=== PATIENT | female | born 1970 | race Caucasian/White ===

== ENCOUNTER → 2016-05-30 | Outpatient (CLI) | payer OTHER ==
[2015-10-03 17:10] VITALS: BP 118/62
[~2016-05-30] MED LIST: BROM2.5T3 PO; BUPR300T4 PO; HYDR25TA PO; LEVO88TA4 PO; SERT50TA8 PO; SULF1TAB24 PO; TRIA1TAB3 PO
--- NOTE | 2016-05-30 13:51 | RAD ---
Bone densitometry scan, 05/30/2016: History: Osteoporosis screening The lumbar spine and right hip were examined utilizing a DEXA technique. The bone mineral density in the lumbar spine as measured from the L1-L4 levels is 1.39 g/sq cm. This yields a T score 1.8 which is in the normal range. A normal total T score of 0.3 was obtained from the right hip. IMPRESSION: Normal bone mineral density measurements.
== END | disposition home or self-care (01) ==
LOC: DXRAD 13:00
PROVIDERS: ATTEND Nurse Practitioner Adult Health
DX: I10 Essential (primary) hypertension (principal); E11.9 Type 2 diabetes mellitus without complications; L40.9 Psoriasis, unspecified; E03.9 Hypothyroidism, unspecified; M85.88 Other specified disorders of bone density and structure, other site
CPT/HCPCS: 77080

== ENCOUNTER 2019-07-01 20:28 | Emergency (ER) | payer OTHER ==
[~2019-07-01] VITALS: Ht 165.1 cm; Wt 81.8 kg
[~2019-07-01 20:28] MED LIST changes: -BROM2.5T3 PO; +BROM2.5T5 PO; -BUPR300T4 PO; +BUPR300T92 PO
--- NOTE | 2019-07-01 21:13 | PHYS DOC ---
Past History Past Medical History: Depression, Diabetes, Seizure, Stroke, Other Past Surgical History: , Other Alcohol Use: None Drug Use: None General Adult EDM: Chief Complaint: ANKLE PROBLEM HPI: HPI: 48-year-old female presents with right ankle pain. She tripped over something that was lying next to her bed. She was able to stand up afterwards. She can walk, but it is painful. She was actually broken. She denies any other injuries from her fall. Review of Systems: Review of Systems: Constitutional: Denies fever or chills Eyes: Denies change in visual acuity HENT: Denies nasal congestion or sore throat Respiratory: Denies cough or shortness of breath Cardiovascular: Denies chest pain or edema GI: Denies abdominal pain, nausea, vomiting, bloody stools or diarrhea : Denies dysuria Musculoskeletal: Right ankle pain Integument: Denies rash Neurologic: Denies headache, focal weakness or sensory changes Endocrine: Denies polyuria or polydipsia Lymphatic: Denies swollen glands Psychiatric: Denies depression or anxiety Heart Score: Risk Factors: Risk Factors: DM, Current or recent (<one month) smoker, HTN, HLP, family history of CAD, obesity. Risk Scores: Score 0 - 3: 2.5% MACE over next 6 weeks - Discharge Home Score 4 - 6: 20.3% MACE over next 6 weeks - Admit for Clinical Observation Score 7 - 10: 72.7% MACE over next 6 weeks - Early Invasive Strategies Allergies: Allergies: Allergies Coded Allergies Type Severity Reaction Last Updated Verified Penicillins Allergy Intermediate Rash 10/03/15 Yes Physical Exam: PE: Constitutional: Well developed, well nourished, no acute distress, non-toxic appearance. [] HENT: Normocephalic, atraumatic, bilateral external ears normal, oropharynx mois t, no oral exudates, nose normal. [] Eyes: PERRLA, EOMI, conjunctiva normal, no discharge. [] Neck: Normal range of motion, no tenderness, supple, no stridor. [] Cardiovascular: Heart rate regular rhythm, no murmur [] Lungs & Thorax: Bilateral breath sounds clear to auscultation [] Abdomen: Bowel sounds normal, soft, no tenderness, no masses, no pulsatile masses. [] Skin: Warm, dry, no erythema, no rash. [] Back: No tenderness, no CVA tenderness. [] Extremities: Mild tenderness of the right ankle, no swelling, no ecchymosis, no deformity[] Neurologic: Alert and oriented X 3, normal motor function, normal sensory function, no focal deficits noted. [] Psychologic: Affect normal, judgement normal, mood normal. [] Current Patient Data: Vital Signs: Vital Signs Date Time Temp Pulse Resp B/P (MAP) Pulse Ox O2 Delivery O2 Flow Rate FiO2 07/01/19 20:40 97.7 91 20 132/77 (95) 99 Room Air EKG: EKG: [] Radiology/Procedures: Radiology/Procedures: [] Impressions: Exam: Right ankle 3 views INDICATION: Fall, pain TECHNIQUE: Frontal, lateral and oblique views of the right ankle Comparisons: None FINDINGS: Partial visualization of the distal tibial fixation device. There is diffuse soft tissue swelling surrounding the ankle. No acute fractures identified. Joint spaces are well-maintained. IMPRESSION: Soft tissue swelling at the ankle without underlying osseous abnormality identified. Electronically signed by: Julius Almaraz MD (07/01/2019 9:42 PM) [id number] DICTATED AND SIGNED BY: JULIUS ALMARAZ MD DATE: 07/01/192141 CC: SKYLER CHAMPAGNE DO; PCP,UNKNOWN ~ Course & Med Decision Making: Course & Med Decision Making Pertinent Labs and Imaging studies reviewed. (See chart for details) The patient's ankle x-rays negative for fracture. This appears to be a mild sprain ankle. We'll place her in an plan. She is stable for discharge at this time. [] Dragon Disclaimer: Carlos A Disclaimer: This electronic medical record was generated, in whole or in part, using a voice recognition dictation system. Departure Departure: Impression: Primary Impression: Right ankle sprain Disposition: 01 HOME, SELF-CARE Condition: STABLE Referrals: PCP,UNKNOWN (PCP) Patient Instructions: Ankle Pain SKYLER CHAMPAGNE DO Jul 01, 2019 21:13
--- NOTE | 2019-07-01 21:45 | RAD ---
Exam: Right ankle 3 views INDICATION: Fall, pain TECHNIQUE: Frontal, lateral and oblique views of the right ankle Comparisons: None FINDINGS: Partial visualization of the distal tibial fixation device. There is diffuse soft tissue swelling surrounding the ankle. No acute fractures identified. Joint spaces are well-maintained. IMPRESSION: Soft tissue swelling at the ankle without underlying osseous abnormality identified. Electronically signed by: Parag Bethea MD (07/01/2019 9:42 PM) [id number]
[2019-07-01 22:08] VITALS: BP 103/59
== END 2019-07-01 22:26 | disposition home or self-care (01) ==
LOC: ER 20:28
DX: S93.401A Sprain of unspecified ligament of right ankle, initial encounter (principal); E11.9 Type 2 diabetes mellitus without complications; Z86.73 Personal history of transient ischemic attack (TIA), and cerebral infarction without residual deficits; Z88.0 Allergy status to penicillin; X50.9XXA Other and unspecified overexertion or strenuous movements or postures, initial encounter; Y93.89 Activity, other specified; Y92.89 Other specified places as the place of occurrence of the external cause; Y99.8 Other external cause status
CPT/HCPCS: 29515; 73610; 99284

== ENCOUNTER 2019-09-02 15:00 | Emergency (ER) | payer OTHER ==
[~2019-09-02] VITALS: Ht 165.1 cm; Wt 100.0 kg
[2019-09-02 15:12] VITALS: BP 134/72
[2019-09-02] MEDS ORDERED: NEOMY/BACITR/POLYMYXIN OINT PACKET. TP ONE (15:30)
[2019-09-02] MEDS ORDERED: MUPI22OI2 TP (15:33)
[2019-09-02] MEDS ORDERED: CLIN300C8 PO (15:33)
--- NOTE | 2019-09-02 15:33 | PHYS DOC ---
Past History Past Medical History: Depression, Diabetes, Seizure, Stroke, Other Additional Past Medical Histor: blind Past Surgical History: , Other Smoking: Non-smoker Alcohol Use: None Drug Use: None General Adult EDM: Chief Complaint: WOUND CHECK HPI: HPI: 49 year old female presents for evaluation of right lower leg wound x 2 weeks. Reports has become more tender to palpation. Patient denies knowledge of original incident. PMH of blindness and DM. Reports last known blood sugar was in 400s. Denies fever/chills. Denies trauma. Reports she has appointment to see her PCP next week. Review of Systems: Review of Systems: Constitutional: Denies fever or chills Musculoskeletal: Denies back pain; report right leg pain Integument: Reports lesion and erythema to right lower leg Neurologic: Denies headache or focal weakness Complete systems were reviewed and found to be within normal limits, except as documented in this note. Allergies: Allergies: Allergies Coded Allergies Type Severity Reaction Last Updated Verified Penicillins Allergy Intermediate Rash 10/03/15 Yes Physical Exam: PE: Constitutional: Well developed, well nourished, no acute distress, non-toxic appearance, poor hygiene HENT: Normocephalic, atraumatic Neck: Normal range of motion, supple Lungs & Thorax: Equal chest rise and fall, no respiratory distress Skin: Warm, dry, 3cm circular ulceration down to subcutaneous fat to medial aspect of right lower leg with surrounding erythema, tender to palpation, no fluctuance Extremities: No tenderness, ROM intact, no edema Neurologic: Alert and oriented X 3, no focal deficits noted Psychologic: Affect normal, judgement normal Current Patient Data: Vital Signs: Vital Signs Date Time Temp Pulse Resp B/P (MAP) Pulse Ox O2 Delivery O2 Flow Rate FiO2 09/02/19 15:12 98.3 91 16 134/72 (92) 96 Room Air EKG: EKG: [] Radiology/Procedures: Radiology/Procedures: [] Course & Med Decision Making: Course & Med Decision Making Patient presents with HPI and physical exam concerning for skin ulceration with surrounding cellulitis. Unclear original cause. Patient reports hx of DM and reports sugars have been in 400s. Denies fever. Patient with poor hygiene. Advised patient recommendation of admission for IV antibiotics and local wound care in addition to improved control of DM. Patient declined and requested to be discharged against medical advice. Patient acknowledges understanding and agreement with acceptance of risks of leaving AMA including loss of limb, permanent disability and/or . PO antibiotic and local wound care provided. Patient advised to follow closely with her PCP regarding recheck and to return for worsening of condition. Patient acknowledges understanding and agreement. Carlos A Disclaimer: Carlos A Disclaimer: This electronic medical record was generated, in whole or in part, using a voice recognition dictation system. Departure Departure: Impression: Primary Impression: Cellulitis Qualified Codes: L03.115 - Cellulitis of right lower limb Additional Impressions: Hx of diabetes mellitus Leg ulcer Qualified Codes: L97.922 - Non-pressure chronic ulcer of unspecified part of left lower leg with fat layer exposed Left against medical advice Disposition: AGAINST MEDICAL ADVICE Condition: GUARDED Referrals: CANDIE CRAVEN NEON TUBE BENDER (PCP) Patient Instructions: Cellulitis, [id number], Diabetes, FAQs, Discharge Against Medical Advice, Stasis Ulcer, [id number] Scripts Mupirocin (MUPIROCIN) 22 Gm Oint...g. 1 ANGEL TP TID for Wound, #22 GM Prov: SEMAJ MCGHEE DO 09/02/19 Clindamycin Hcl (CLINDAMYCIN HCL) 300 Mg Capsule 1 CAP PO TID for infection for 10 Days, #30 CAP Prov: SEMAJ MCGHEE DO 09/02/19 Justification of Admission: Justification of Admission: Justification of Admission Dx: N/A SEMAJ MCGHEE DO Sep 02, 2019 15:33
[2019-09-02] MEDS ORDERED: CLINDAMYCIN HCL 150 MG CAPSULE PO ONE (16:00)
== END 2019-09-02 16:03 | disposition left against medical advice (07) ==
LOC: ER 15:00
DX: L03.115 Cellulitis of right lower limb (principal); L97.819 Non-pressure chronic ulcer of other part of right lower leg with unspecified severity; E11.9 Type 2 diabetes mellitus without complications; H54.7 Unspecified visual loss; Z86.73 Personal history of transient ischemic attack (TIA), and cerebral infarction without residual deficits; Z88.0 Allergy status to penicillin
CPT/HCPCS: 99283

== ENCOUNTER 2020-02-09 17:27 | Emergency (ER) | payer OTHER ==
[~2020-02-09] VITALS: Ht 165.1 cm; Wt 98.3 kg
[~2020-02-09 17:27] MED LIST changes: +CLIN300C8 PO; +MUPI22OI2 TP
[2020-02-09] MEDS ORDERED: CLIN150C14 PO (18:18)
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
[2020-02-09 18:24] VITALS: BP 132/66
[2020-02-09] MEDS ORDERED: CLINDAMYCIN HCL 150 MG CAPSULE ONE (18:24)
[2020-02-09] MEDS ORDERED: CLINDAMYCIN HCL 150 MG CAPSULE PO ONE (18:30)
== END 2020-02-09 18:40 | disposition home or self-care (01) ==
LOC: ER 17:27
DX: L03.316 Cellulitis of umbilicus (principal); L84 Corns and callosities; E11.9 Type 2 diabetes mellitus without complications; Z86.73 Personal history of transient ischemic attack (TIA), and cerebral infarction without residual deficits; Z88.0 Allergy status to penicillin
CPT/HCPCS: 99283

== ENCOUNTER 2021-08-12 22:41 | Emergency (ER) | payer OTHER ==
[~2021-08-12] VITALS: Ht 165.1 cm; Wt 98.0 kg
[~2021-08-12 22:41] MED LIST changes: +CLIN-95 PO; +CLIN150C16 PO; -CLIN300C8 PO; +SERT-268 PO; -SERT50TA8 PO
[2021-08-12 22:55] VITALS: BP 126/61
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
[2021-08-12] MEDS ORDERED: DIPHTH,PERTUSS(ACELL),TET TOX 0.5 ML DISP.SYRIN. VAX IM ONE (23:45)
[2021-08-12] MEDS ORDERED: LIDOCAINE 2%/EPI 1:100,000 20 ML VIAL. IJ ONE (23:45)
[2021-08-13] MEDS ORDERED: NEOMY/BACITR/POLYMYXIN OINT PACKET. TP ONE (00:30)
== END 2021-08-13 00:10 | disposition home or self-care (01) ==
LOC: ER 22:41
DX: S41.112A Laceration without foreign body of left upper arm, initial encounter (principal); E11.9 Type 2 diabetes mellitus without complications; Z86.73 Personal history of transient ischemic attack (TIA), and cerebral infarction without residual deficits; Z88.0 Allergy status to penicillin; W01.198A Fall on same level from slipping, tripping and stumbling with subsequent striking against other object, initial encounter; Y93.89 Activity, other specified; Y92.89 Other specified places as the place of occurrence of the external cause; Y99.8 Other external cause status
CPT/HCPCS: 12002; 90471; 90715; 99283